=== PATIENT | male | born 1985 | race African-American/Black ===

== ENCOUNTER 2017-09-26 09:57 | Emergency (ER) | payer SELFPAY ==
[2017-09-26] MEDS ORDERED: Ketorolac 60 MG/2 ML SDV IM ONE (10:44)
[2017-09-26] MEDS ORDERED: Diphtheria,Pertussis(Acell),Tetanus Vaccine 0.5 ML Syringe IM ONE (10:44)
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
--- NOTE | 2017-09-26 11:40 | CR ---
EXAMINATION: Left shoulder HISTORY: Pain COMPARISON: None TECHNIQUE: 3 views FINDINGS/IMPRESSION: There is no acute osseous abnormality, dislocation, or fracture. Bone mineraliza tion and joint spaces appear normal.
--- NOTE | 2017-09-26 11:42 | CR ---
EXAMINATION: Left ankle HISTORY: Pain COMPARISON: None TECHNIQUE: 3 views FINDINGS/IMPRESSION: There is no acute osseous abnormality, dislocation, or fracture. Bone mineraliza tion, ankle mortise, and joint spaces appear preserved. No significant soft tissue swelling.
== END 2017-09-26 12:03 | disposition home or self-care (01) ==
LOC: MW.ED 09:57
DX: S49.92XA Unspecified injury of left shoulder and upper arm, initial encounter (principal); S99.912A Unspecified injury of left ankle, initial encounter; Z23 Encounter for immunization; V86.96XA Unspecified occupant of dirt bike or motor/cross bike injured in nontraffic accident, initial encounter
CPT/HCPCS: 73030-26-LT; 73030-LT; 73610-26-LT; 73610-LT; 90471; 90715; 99283; 99283-25